=== PATIENT | male | born 2000 | race Caucasian/White ===

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

== ENCOUNTER 2021-07-24 13:33 | Emergency (ER) | payer MEDICAID ==
[~2021-07-24] VITALS: Ht 157.5 cm; Wt 61.9 kg
[2021-07-24 13:45] VITALS: BP 119/64
--- NOTE | 2021-07-24 13:53 | NUR ---
PT TO WAIT IN LOBBY
[2021-07-24] MEDS ORDERED: ONDANSETRON 4 MG ODT PO ONE (14:30)
--- NOTE | 2021-07-24 14:35 | NUR ---
Pt ambulated to bed 08 with steady/even gait.
--- NOTE | 2021-07-24 14:44 | NUR ---
21 y/o M BIB self from home c/o chest pain x 1.5 hrs. Pt states second dose of Moderna vaccine 07/19/21. States since vaccine, feeling not well: nausea + generalized weakness. States sternal chest pain 5/10, burning/intermittent, non-radiating pain. Denies vomiting, diarrhea, fever, chills, abdominal pain, headache, blurry vision, SOB. No meds prior to arrival. Bed locked in lowest position, side rails x 1. PMH:ASTHMA NKDA
--- NOTE | 2021-07-24 14:48 | NUR ---
Pt states "the chest pain went away."
--- NOTE | 2021-07-24 15:32 | NUR ---
PT MOVED TO CHAIR C
--- NOTE | 2021-07-24 16:06 | NUR ---
Patient discharged with v/s stable. Written and verbal after care instructions ABOUT FATIGUE AND NONSPECIFIC CHEST PAIN given and explained. Patient verbalized understanding. Ambulatory with steady gait. All questions addressed prior to discharge. Advised to follow up with PMD.
== END 2021-07-24 16:06 | disposition home or self-care (01) ==
LOC: MED 13:33
DX: R53.83 Other fatigue (principal); R11.2 Nausea with vomiting, unspecified
CPT/HCPCS: 71045; 93005; 99283; Q0162